=== PATIENT | female | born 1985 | race Caucasian/White ===

== ENCOUNTER 2023-04-14 13:19 | Emergency (ER) | payer MEDICARE, MEDICAID ==
[~2023-04-14] VITALS: Ht 175.3 cm; Wt 59.1 kg
[~2023-04-14 13:19] MED LIST: [UNRECOGNIZED DRUG - CODE] TD
[2023-04-14 13:37] VITALS: TEMP 98.4
[2023-04-14] MEDS ORDERED: ACETAMINOPHEN 500 MG TABLET PO ONE ×2 (14:45→16:45)
[2023-04-14] MEDS ORDERED: DIAZEPAM 5 MG TABLET PO ONE (14:45)
[2023-04-14] MEDS ORDERED: LIDOCAINE 5% TRANSDERMAL PATCH TD ONE (14:45)
[2023-04-14] MEDS ORDERED: CYCLOBENZAPRINE HCL 10 MG TABLET PO ONE (15:00)
[2023-04-14 17:12] VITALS: BP 122/70; PULSE 86; RESP 16
[2023-04-14] MEDS ORDERED: CYCL-448 PO (17:12)
== END 2023-04-14 17:18 | disposition home or self-care (01) ==
LOC: EMS 13:54
DX: M62.838 Other muscle spasm (principal); Z98.890 Other specified postprocedural states; Z90.49 Acquired absence of other specified parts of digestive tract; Z88.6 Allergy status to analgesic agent; Z88.5 Allergy status to narcotic agent; Z88.8 Allergy status to other drugs, medicaments and biological substances
CPT/HCPCS: 99284; Z7502; Z7610